=== PATIENT | female | born 1980 | race Caucasian/White ===

== ENCOUNTER 2017-09-29 04:05 | Emergency (ER) | payer MEDICAID ==
[~2017-09-29] VITALS: Ht 162.6 cm; Wt 89.0 kg
[2017-09-29] MEDS ORDERED: ACETAMINOPHEN 325MG TABLET PO ONE (08:15)
[2017-09-29 08:22] VITALS: BP 135/77
== END 2017-09-29 08:27 | disposition home or self-care (01) ==
LOC: ER 04:05
DX: H66.92 Otitis media, unspecified, left ear (principal); H60.92 Unspecified otitis externa, left ear
CPT/HCPCS: 99282; 99283

== ENCOUNTER 2018-07-18 14:33 | Emergency (ER) | payer MEDICAID ==
[~2018-07-18] VITALS: Ht 162.6 cm; Wt 63.0 kg
[2018-07-18 16:30] VITALS: BP 139/94
[2018-07-18] MEDS ORDERED: SODIUM CHLORIDE 0.9% 1,000 ML IV ONE (16:34)
[2018-07-18] MEDS ORDERED: ONDANSETRON HCL 4MG/2ML INJ IV STA (16:34)
[2018-07-18] MEDS ORDERED: MECLIZINE 12.5MG TABLET PO ONE (16:45)
[2018-07-18] MEDS: MECLIZINE 25MG TABLET PO NR ×3 (17:57→19:37)
== END 2018-07-18 19:30 | disposition home or self-care (01) ==
LOC: ER 14:33
DX: H81.10 Benign paroxysmal vertigo, unspecified ear (principal); F41.9 Anxiety disorder, unspecified
CPT/HCPCS: 96361; 96374; 99283; J2405; J7030; J8597